=== PATIENT | female | born 1990 | race Caucasian/White ===

== ENCOUNTER 2017-06-12 23:13 | Emergency (ER) | payer OTHER ==
[~2017-06-12] VITALS: Ht 162.6 cm; Wt 84.4 kg
[~2017-06-12 23:13] MED LIST: COLACE100 MG PO; NORCO1 TA2 PO
[2017-06-12 23:24] VITALS: Ht 162.6 cm; Wt 84.4 kg
[2017-06-13 02:07] VITALS: BP 127/69
== END 2017-06-13 02:07 | disposition home or self-care (01) ==
LOC: ED 23:13
DX: S61.213A Laceration without foreign body of left middle finger without damage to nail, initial encounter (principal); W26.0XXA Contact with knife, initial encounter; Y93.89 Activity, other specified; Y99.8 Other external cause status; Y92.89 Other specified places as the place of occurrence of the external cause
CPT/HCPCS: 90715; A4570; J2001

== ENCOUNTER 2018-01-04 15:29 | Emergency (ER) | payer OTHER ==
[~2018-01-04] VITALS: Ht 162.6 cm; Wt 86.2 kg
[2018-01-04 15:40] VITALS: Ht 162.6 cm; Wt 86.2 kg
[2018-01-04 17:35] VITALS: BP 112/74
== END 2018-01-04 17:35 | disposition home or self-care (01) ==
LOC: ED 15:29
DX: G44.209 Tension-type headache, unspecified, not intractable (principal); M54.12 Radiculopathy, cervical region